=== PATIENT | male | born 1965 | race Two or more races ===

== ENCOUNTER 2017-03-04 17:36 | Emergency (ER) | payer BC | END 2017-03-04 18:38 | disposition home or self-care (01) | DX: S60.011A Contusion of right thumb without damage to nail, initial encounter (principal); S63.8X1A Sprain of other part of right wrist and hand, initial encounter; S63.601A Unspecified sprain of right thumb, initial encounter; W01.0XXA Fall on same level from slipping, tripping and stumbling without subsequent striking against object, initial encounter; Y92.019 Unspecified place in single-family (private) house as the place of occurrence of the external cause ==

== ENCOUNTER 2018-05-16 17:39 | Emergency (ER) | payer BC, OTHER ==
[2018-05-16 17:52] VITALS: BP 147/91
--- NOTE | 2018-05-16 18:40 | ED Physician Documentation ---
History of Present Illness - Stated complaint Stated Complaint: BILAT HAND INJ - Chief complaint Chief Complaint: Ext Problem - History obtained from History obtained from: Patient - History of Present Illness Timing: Today Pain level max: 4 Pain level now: 4 Improved by: rest Worsened by: movement - Additonal information Additional information: crush injury to B hands. distal phalanx of digits 3-4 B. decreased sensation over fingertips. Review of Systems Constitutional: denies: Fever, Chills Ears: denies: Ear pain Nose: denies: Rhinorrhea / runny nose, Congestion Throat: denies: Sore throat GI: denies: Nausea, Vomiting, Diarrhea Skin: denies: Rash Musculoskeletal: denies: Neck pain, Back pain Neurologic: denies: Headache PD PAST MEDICAL HISTORY - Past Medical History Past Medical History: No Cardiovascular: None Respiratory: None Endocrine/Autoimmune: None GI: None : None HEENT: None Psych: None Musculoskeletal: None Derm: None - Past Surgical History Past Surgical History: Yes Ortho: Knee replacement - Present Medications Home Medications: Ambulatory Orders Medication Instructions Recorded Confirmed No Known Home Medications [No 03/04/17 05/16/18 Known Home Medications] - Allergies Allergies/Adverse Reactions: Allergies Allergy/AdvReac Type Severity Reaction Status Date / Time No Known Drug Allergies Allergy Verified 05/16/18 17:56 - Social History Does the pt smoke?: No Smoking Status: Never smoker Does the pt drink ETOH?: Yes Does the pt have substance abuse?: No - Immunizations Immunizations are current?: Yes PD ED PE NORMAL - Vitals Vital signs reviewed: Yes - General General: Alert and oriented X 3 - HEENT HEENT: Moist mucous membranes - Neck Neck: Supple, no meningeal sign - Cardiac Cardiac: RRR - Respiratory Respiratory: No respiratory distress, Clear bilaterally - Derm Derm: Warm and dry - Neuro Neuro: Alert and oriented X 3 PD ED PE EXPANDED - Extremities DAMEON UE/Hands Visual: 1 - swelling, tenderness 2 - swelling, tenderness Results - Vitals Vitals: Vital Signs - 24 hr 05/16/18 17:43 Temperature 37.1 C Heart Rate 81 Respiratory 16 Rate Blood Pressure 147/91 H O2 Saturation 100 Oxygen O2 Source Room air - Rads (name of study) B hand xray Radiology: Prelim report reviewed, EMP read contemporaneously, See rad report ( R hand 4th digit distal tuft fracture, L hand 3rd and 4th distal tuft fractures. ) PD MEDICAL DECISION MAKING - ED course Complexity details: reviewed results, re-evaluated patient, considered differential, d/w patient ED course: Patient is a 52-year-old male who sustained a crush injury to the bilateral fingertips of his hands. Appears to have distal tuft fractures of the left third and fourth digits as well as the right fourth digit. Does have mild numbness at the tips of the fingers. Good cap refill. Full range of motion present. Declines any pain medication here for home. No subungual hematomas at this time. Placed in a finger splint and dick taped. Patient counseled regarding signs and symptoms for which I believe and urgent re-evaluation would be necessary. Patient with good understanding of and agreement to plan and is comfortable going home at this time This document was made in part using voice recognition software. While efforts are made to proofread this document, sound alike and grammatical errors may occur. - Sepsis Event Vital Signs: Vital Signs - 24 hr 05/16/18 17:43 Temperature 37.1 C Heart Rate 81 Respiratory 16 Rate Blood Pressure 147/91 H O2 Saturation 100 Oxygen O2 Source Room air Departure - Departure Disposition: 01 Home, Self Care Clinical Impression: Fracture, finger, distal phalanx Qualifiers: Encounter type: initial encounter Finger: unspecified finger Fracture type: closed Fracture alignment: displaced Qualified Code(s): S62.639A - Displaced fracture of distal phalanx of unspecified finger, initial encounter for closed fracture Condition: Good Instructions: ED Fx Finger Closed Follow-Up: your,doctor in 3 days for wound check [Other] Comments: Wear the splints for comfort. Return if you worsen. This should heal without problems. If you fingers become more painful, return for repeat evaluation. Discharge Date/Time: 05/16/18 19:07
--- NOTE | 2018-05-17 09:10 | XRAY Report ---
Procedure Date: 05/16/2018 Accession Number: [id number] / [id number] Procedure: XR - Hand 3 View BILAT CPT Code: FULL RESULT: EXAMS: 1. Right Hand Radiography 2. Left Hand Radiography EXAM DATE: 05/16/2018 06:07 PM. CLINICAL HISTORY: B hand crush injury. COMPARISON: None. TECHNIQUE: 3 views each hand. FINDINGS: Right: Bones: Comminuted and mildly displaced fracture of the fourth distal phalanx tuft. No additional fracture. Joints: Normal. No subluxations. Soft Tissues: Mild soft tissue swelling. Left: Bones: There are fractures of the third and fourth distal phalanx calderon without significant displacement. No additional fracture. Joints: Normal. No subluxations. Soft Tissues: Mild soft tissue swelling. IMPRESSION: Right: Mildly displaced fourth distal phalanx tuft fracture. Left: Nondisplaced third and fourth distal phalanx tuft fractures. [facility]
== END 2018-05-16 19:07 | disposition home or self-care (01) ==
LOC: ED 17:39
DX: S62.664A Nondisplaced fracture of distal phalanx of right ring finger, initial encounter for closed fracture (principal); S62.665A Nondisplaced fracture of distal phalanx of left ring finger, initial encounter for closed fracture; S62.667A Nondisplaced fracture of distal phalanx of left little finger, initial encounter for closed fracture; W23.0XXA Caught, crushed, jammed, or pinched between moving objects, initial encounter
CPT/HCPCS: 99283

== ENCOUNTER 2020-06-08 09:29 | Day surgery (SDC) | payer BC ==
[2020-06-08] MEDS ORDERED: LACTATED RINGERS 1,000 ML IV ONE ×2 (09:44→12:45)
[2020-06-08 13:14] VITALS: BP 112/78
== END 2020-06-08 09:30 | disposition home or self-care (01) ==
LOC: SDS 09:29
PROVIDERS: ATTEND Surgery
PROC: 0DBL8ZZ Excision of Transverse Colon, Via Natural or Artificial Opening Endoscopic (ICD-10-PCS; 2020-06-08)
PROC: 0DBP8ZZ Excision of Rectum, Via Natural or Artificial Opening Endoscopic (ICD-10-PCS; principal; 2020-06-08 10:30)
DX: Z12.11 Encounter for screening for malignant neoplasm of colon (principal); D12.3 Benign neoplasm of transverse colon; K62.1 Rectal polyp
CPT/HCPCS: 45380; J7120

== ENCOUNTER 2021-06-24 08:00 | Outpatient (CLI) | payer BC | END 2021-06-24 23:59 | disposition home or self-care (01) | LOC: LAB.S 08:00 | PROVIDERS: ATTEND Physician Assistant Medical | DX: L40.1 Generalized pustular psoriasis (principal) | CPT/HCPCS: 87070; 87181; 87205 ==